=== PATIENT | female | born 1950 | race Caucasian/White ===

== ENCOUNTER 2018-10-01 21:00 | Emergency (ER) | payer OTHER, MEDICARE ==
[~2018-10-01] VITALS: Ht 152.4 cm; Wt 59.1 kg
[2018-10-01 21:14] VITALS: BP 149/63; TEMP 98.6
[2018-10-01 21:47] LABS: COLLECTION METHOD CLEAN CATCH
[2018-10-01 21:54] LABS: BASO % 0.3 % (0.0-2.0); EOS # 0.1 (0.0-0.7); EOS % 0.8 % (0-4.0); GRAN # 9.1 (1.4-6.5); GRAN % 74.7 % (42.2-75.2); HEMATOCRIT 41.4 % (37.0-47.0); HEMOGLOBIN 13.7 g/dl (12.5-16.0); LYMPH # 1.9 (1.2-3.4); LYMPH % 15.6 % (20.0-51.0); MEAN CELL VOLUME 91 fl (80.0-100.0); MEAN CORPUSCULAR HEMOGLOBIN 30 pg (27.0-31.0); MEAN CORPUSCULAR HGB CONC 33 g/dl (33.0-37.0); MEAN PLATELET VOLUME 9.6 fl (7.4-10.4); MONO % 8.3 % (1.7-9.3); PLATELET COUNT 339 K/mm3 (130-400); RED BLOOD COUNT 4.57 M/mm3 (4.10-5.30); REDCELL DISTRIBUTION WIDTH-CV 13.8 % (11.5-14.5)
[2018-10-01 22:01] LABS: MUCOUS Present /lpf; PH 7 (5-8); URINE APPEARANCE Clear; URINE BACTERIA None Seen /hpf; URINE BILIRUBIN Negative (NEGATIVE); URINE BLOOD Negative (NEGATIVE); URINE COLOR Yellow; URINE GLUCOSE Negative (NEGATIVE); URINE KETONE Negative (NEGATIVE); URINE LEUKOCYTE ESTERASE Negative (NEGATIVE); URINE NITRATE Negative (NEGATIVE); URINE PROTEIN(semi-quant) Negative (NEGATIVE); URINE RBC None Seen /hpf; URINE UROBILINOGEN Negative (NEGATIVE)
[2018-10-01 22:11] LABS: ALBUMIN 4.3 gm/dL (3.5-5.0); BILIRUBIN,TOTAL 0.6 mg/dL (0.0-1.0); C-REACTIVE PROTEIN 2.5 mg/dL (0.0-0.9); CALCIUM 9.5 mg/dL (8.4-10.2); CREATININE, serum 0.52 (0.52-1.25); POTASSIUM 3.8 mmol/L (3.4-5.0); TOTAL PROTEIN 7.7 gm/dL (6.4-8.2)
[2018-10-01] MEDS ORDERED: CLARITIN 1010 MG/TAB PO (22:40)
[2018-10-01] MEDS ORDERED: RT SPIRIVA18 MCG IH (22:40)
[2018-10-01] MEDS ORDERED: VITAMINC1000TA (22:40)
[2018-10-01] MEDS ORDERED: PRILOSEC 20MG20 MG PO (22:40)
[2018-10-01] MEDS ORDERED: FLONASEALLERGY NS (22:41)
[2018-10-01] MEDS ORDERED: RT ADVAIR 128 DISKUS IH (22:41)
[2018-10-01] MEDS ORDERED: LEXAPRO20 MG PO (22:41)
[2018-10-01] MEDS ORDERED: PROBIOTIC FORMU1 CAP PO (22:42)
[2018-10-01] MEDS ORDERED: ZYRTEC ALLERGY10 MG PO (22:42)
[2018-10-01] MEDS ORDERED: DOXYCYCLINE 10100 MG PO (23:00)
[2018-10-01] MEDS ORDERED: PREDNISONE20 MG PO (23:00)
[2018-10-01 23:10] VITALS: PULSE 101
== END 2018-10-01 23:10 | disposition home or self-care (01) ==
LOC: COL.ER 21:00
PROVIDERS: Emergency Medicine
DX: J44.1 Chronic obstructive pulmonary disease with (acute) exacerbation (principal); R53.81 Other malaise; R07.89 Other chest pain; Z79.51 Long term (current) use of inhaled steroids
CPT/HCPCS: J1885; J7512